=== PATIENT | female | born 1955 | race Two or more races ===

== ENCOUNTER 2017-05-18 22:50 | Emergency (ER) | payer OTHER ==
[~2017-05-18] VITALS: Ht 162.6 cm; Wt 59.4 kg
--- NOTE | 2017-05-18 23:00 | NUR ---
Pt is received alert, responsive as she is radha in by son , who is translated because pt speaks Farsi, she came in c/o feeling Dizzy and Depressed since her mother 2days ago. Her care continue as awaits MD orders.
[2017-05-18] MEDS ORDERED: LORAZEPAM 0.5 MG TABLET PO ONE (23:15)
[2017-05-18] MEDS ORDERED: ONDANSETRON ODT 4 MG TAB.RAPDIS SL ONE (23:30)
--- NOTE | 2017-05-18 23:30 | NUR ---
Pt remain alert, responsive as she is been medicated with Zofran 4mg SL for n/vomiting and Ativan 2mg PO for Anxiety. Her care continue as she will be monitor closely with family at bedside.
[2017-05-18] MEDS ORDERED: LORAZEPAM 1 MG TABLET ONE (23:38)
[2017-05-18] MEDS ORDERED: ONDANSETRON ODT 4 MG TAB.RAPDIS ONE (23:38)
--- NOTE | 2017-05-19 00:14 | NUR ---
Patient discharged to home in stable conditon. Written and verbal after care instructions given. Patient verbalizes understanding of instructions. Ambulated from ER with stable gait. All belongings with patient. patient will be driven home by son in private vehicle.
[2017-05-19 00:15] VITALS: BP 130/76
== END 2017-05-19 00:15 | disposition home or self-care (01) ==
LOC: ER 22:50
DX: F41.9 Anxiety disorder, unspecified (principal)
CPT/HCPCS: A4663; Q0162